=== PATIENT | male | born 1970 | race Caucasian/White ===

== ENCOUNTER 2021-03-19 05:05 | Observation (INO) | payer MEDICAID, OTHER ==
[~2021-03-19] VITALS: Ht 170.2 cm; Wt 104.0 kg
[2021-03-19] MEDS ORDERED: NITROGLYCERIN SINGLE TAB 0.4 MG SL ONE (05:36)
[2021-03-19] MEDS: NITROGLYCERIN SINGLE TAB 0.4 MG SL PRN ×3 (05:46→06:34)
[2021-03-19 06:04] LABS: BASOPHILS % (AUTO) 1 % (0-1); EOSINOPHILS % (AUTO) 4 % (1-7); LYMPHOCYTES % (AUTO) 20 % (22-44); MEAN CORPUSCULAR HEMOGLOBIN 30.6 pg (27.5-34.5); MEAN CORPUSCULAR HGB CONC 34.5 g/dL (33.2-36.2); MEAN PLATELET VOLUME 9.1 fL (7.4-10.4); MONOCYTES % (AUTO) 7 % (2-9); NEUTROPHILS % (AUTO) 68 % (42-75); PLATELET COUNT 212 x10^3/uL (130-400); RED BLOOD COUNT 5.02 x10^6/uL (4.38-5.82); RED CELL DISTRIBUTION WIDTH 14.1 % (9.4-14.8)
[2021-03-19] MEDS ORDERED: ASPIRIN 81 MG TABLET CHEW ONE (06:10)
[2021-03-19 06:13] LABS: ALANINE AMINOTRANSFERASE 43 U/L (12-78); ALBUMIN 3.3 g/dL (3.4-5.0); ANION GAP 6 mmol/L (5-15); CALCIUM 8.2 mg/dL (8.5-10.1); CHLORIDE 109 mmol/L (98-107)
[2021-03-19 06:17] LABS: ALKALINE PHOSPHATASE 77 U/L (45-117); BILIRUBIN,TOTAL 0.6 mg/dL (0.2-1.0); TOTAL PROTEIN 6.7 g/dL (6.4-8.2); TROPONIN I < 0.015 ng/mL (0.000-0.045)
[2021-03-19] MEDS ORDERED: ASPIRIN 81 MG TABLET CHEW PO ONE (06:30)
[2021-03-19] MEDS ORDERED: POTASSIUM CHLORIDE 20 MEQ TAB.ER.PRT PO ONE (07:00)
[2021-03-19] MEDS ORDERED: POTASSIUM CHLORIDE 40 MEQ in SODIUM CHLORIDE 0.9% 500 ML IV ONE (07:00)
[2021-03-19] MEDS ORDERED: FENTANYL PF 100 MCG/2ML IVPush PRN (07:00)
[2021-03-19] MEDS ORDERED: POTASSIUM CHLORIDE 20 MEQ TAB.ER.PRT ONE (07:15)
--- NOTE | 2021-03-19 07:25 | NUR ---
REPORT FROM DESMOND ALEJANDRA. PT CURRENTLY UP AMBULATORY INDEPENDENT TO BATHROOM. BACK IN BED, MONITORS ATTACHED, IVF INFUSING PER EMAR. VSS. NAD NOTED AT THIS TIME. AT BEDSIDE.
--- NOTE | 2021-03-19 08:10 | NUR ---
PT RESTING IN BED. IVF INFUSING PER EMAR. PILLOW GIVEN, BLANKET APPLIED. NAD NOTED AT THIS TIME. PT RECLINED IN BED. SIDE RAILS UP, CALL LIGHT IN REACH. AT BEDSIDE.
[2021-03-19 09:13] LABS: TROPONIN I < 0.015 ng/mL (0.000-0.045)
--- NOTE | 2021-03-19 09:18 | NUR ---
PT UP AMBULATING TO BATHROOM INDEPENDENTLY. NAD NOTED AT THIS TIME. AT BEDSIDE.
--- NOTE | 2021-03-19 09:55 | NUR ---
FIRST ATTEMPT TO CALL REPORT.
[2021-03-19] MEDS ORDERED: FENTANYL PF 100 MCG/2ML IV PRN (12:00)
[2021-03-19] MEDS ORDERED: NITROGLYCERIN 0.4 MG BOTTLE (25 TABS) SL PRN (12:00)
[2021-03-19] MEDS ORDERED: morphine SULFATE 10 MG/ML, 1ML IVPush PRN (12:00)
[2021-03-19] MEDS ORDERED: ONDANSETRON 2MG/ML, 2ML IV PRN (12:00)
[2021-03-19] MEDS: INSULIN LISPRO 100 UNITS/ML, PEN SQ-INSULIN SCH ×3 (12:00→21:13)
[2021-03-19] MEDS ORDERED: NITROGLYCERIN 0.4 MG/SPRAY SL PRN (12:00)
[2021-03-19] MEDS ORDERED: ACETAMINOPHEN 325 MG TABLET PO PRN (12:00)
[2021-03-19] MEDS ORDERED: HYDROcodone/APAP 5/325 TABLET PO PRN (12:00)
[2021-03-19] MEDS ORDERED: BISACODYL 10 MG SUPP PR PRN (12:00)
[2021-03-19] MEDS: SALMETEROL INH 50MCG/INH DISK.W.DEV INH SCH ×2 (12:27→20:56)
[2021-03-19] MEDS ORDERED: ALBUTEROL-IPRATROPIUM MDI INH INH PRN (12:30)
[2021-03-19] MEDS: SODIUM CHLORIDE FLUSH 10ML SYR IVF SCH ×2 (13:00→20:57)
[2021-03-19] MEDS: PANTOPRAZOLE 40MG TABLET PO SCH ×2 (13:05→20:56)
[2021-03-19] MEDS: ENOXAPARIN 40 MG/0.4 ML SQ SCH (13:05)
[2021-03-19] MEDS: methylPREDNISolone SOD SUCC 40 MG/ML IV SCH ×2 (13:05→20:55)
[2021-03-19 13:38] VITALS: BP 135/87
[2021-03-19 16:00] LABS: TROPONIN I < 0.015 ng/mL (0.000-0.045)
[2021-03-19 20:03] VITALS: BP 143/81
[2021-03-19] MEDS: AMLODIPINE 5 MG TABLET PO SCH (20:56)
[2021-03-19] MEDS: LOSARTAN 50MG TABLET PO SCH (20:56)
[2021-03-20 02:05] VITALS: BP 146/88
[2021-03-20] MEDS: methylPREDNISolone SOD SUCC 40 MG/ML IV SCH ×2 (05:32→12:18)
[2021-03-20] MEDS ORDERED: ASPIRIN 325 MG TABLET EC PO SCH (06:00)
[2021-03-20 06:49] LABS: ALBUMIN 3.4 g/dL (3.4-5.0); CALCIUM 8.8 mg/dL (8.5-10.1); CHLORIDE 108 mmol/L (98-107)
[2021-03-20 06:54] LABS: ALANINE AMINOTRANSFERASE 42 U/L (12-78); ALKALINE PHOSPHATASE 62 U/L (45-117); ANION GAP 7 mmol/L (5-15); BILIRUBIN,TOTAL 0.9 mg/dL (0.2-1.0); CREATININE 0.89 mg/dL (0.7-1.3)
[2021-03-20] MEDS: INSULIN LISPRO 100 UNITS/ML, PEN SQ-INSULIN SCH ×2 (07:00→12:34)
[2021-03-20 07:20] VITALS: BP 143/94
[2021-03-20] MEDS ORDERED: REGADENOSON 0.4 MG/5 ML SYRINGE ONE (08:39)
[2021-03-20] MEDS: SODIUM CHLORIDE FLUSH 10ML SYR IVF SCH (09:00)
[2021-03-20] MEDS ORDERED: FLUTICASONE FUROATE 100MCG/INH INH SCH (09:00)
[2021-03-20] MEDS: PANTOPRAZOLE 40MG TABLET PO SCH (10:12)
[2021-03-20] MEDS: AMLODIPINE 5 MG TABLET PO SCH (10:12)
[2021-03-20] MEDS: SALMETEROL INH 50MCG/INH DISK.W.DEV INH SCH (10:13)
[2021-03-20] MEDS: LOSARTAN 50MG TABLET PO SCH (10:13)
[2021-03-20] MEDS ORDERED: ALBUTEROL/IPRATROPIUM 2.5MG/0.5MG, 3 ML HHN PRN (11:00)
[2021-03-20] MEDS: ENOXAPARIN 40 MG/0.4 ML SQ SCH (12:19)
[2021-03-20] MEDS ORDERED: FLUT100B INH (12:41)
[2021-03-20] MEDS ORDERED: LOSA50TA2 PO (12:41)
[2021-03-20] MEDS ORDERED: SALM50DI2 INH (12:41)
[2021-03-20] MEDS ORDERED: PANT40TA6 PO (12:41)
[2021-03-20] MEDS ORDERED: PRED10TA PO (12:41)
[2021-03-20] MEDS ORDERED: AMLO-150 PO ×2 (12:41→12:49)
[2021-03-20] MEDS ORDERED: OMEP20TA62 PO (12:49)
[2021-03-20] MEDS ORDERED: VALS1TAB29 PO (12:49)
[2021-03-20] MEDS ORDERED: ALBU18HF INH (12:49)
[2021-03-20] MEDS ORDERED: BUDE10.2 INH (12:49)
[2021-03-20] MEDS ORDERED: METF500T27 PO (12:49)
[2021-03-20] MEDS ORDERED: ESCI10TA10 PO (12:49)
[2021-03-21] MEDS ORDERED: ESCITALOPRAM 10MG TABLET PO SCH (09:00)
[2021-03-21] MEDS ORDERED: metFORMIN XR 500 MG TAB.ER.24H PO SCH (09:00)
[2021-03-21] MEDS ORDERED: OMEPRAZOLE 20 MG CAPSULE.DR PO SCH (09:00)
[2021-03-21] MEDS ORDERED: AMLODIPINE 5 MG TABLET PO SCH (09:00)
== END 2021-03-20 14:14 | disposition home or self-care (01) ==
LOC: ED 05:30 → INTOOBSV 06:35 → EDIP 06:35 → 5SO 10:14
PROVIDERS: ADMIT Internal Medicine; ATTEND Internal Medicine
DX: R07.89 Other chest pain (principal); J45.901 Unspecified asthma with (acute) exacerbation; E87.6 Hypokalemia; D72.828 Other elevated white blood cell count; I45.10 Unspecified right bundle-branch block; E11.9 Type 2 diabetes mellitus without complications; I10 Essential (primary) hypertension; T50.2X5A Adverse effect of carbonic-anhydrase inhibitors, benzothiadiazides and other diuretics, initial encounter; Z79.899 Other long term (current) drug therapy
CPT/HCPCS: 36415; 71045; 78452; 80053; 82962; 83036; 83735; 84132; 84484; 85025; 93005; 93017; 93306; 96365; 96366; 96372; 96375; 96376; 99285; A9502; C9898; G0378; J1650; J1815; J2785; J2920; J3480; J7040